=== PATIENT | female | born 1960 | race Caucasian/White ===

== ENCOUNTER → 2023-11-14 06:49 | Outpatient (REF) | payer BC, SELFPAY | LOC: MRI 3T 06:49 | PROVIDERS: ATTENDING PHYSICIAN Podiatrist Foot Surgery; FAMILY PHYSICIAN Nurse Practitioner Family | DX: G57.62 Lesion of plantar nerve, left lower limb (principal) | CPT/HCPCS: 73718 ==

== ENCOUNTER → 2023-11-19 14:49 | Outpatient (REF) | payer BC, SELFPAY | LOC: HWRAD 14:49 | PROVIDERS: ATTENDING PHYSICIAN Internal Medicine | DX: J18.9 Pneumonia, unspecified organism (principal); J98.8 Other specified respiratory disorders; J45.21 Mild intermittent asthma with (acute) exacerbation | CPT/HCPCS: 71046 ==

== ENCOUNTER → 2023-12-03 10:31 | Outpatient (REF) | payer BC, SELFPAY | LOC: RCS 10:31 | PROVIDERS: ATTENDING PHYSICIAN Internal Medicine Cardiovascular Disease; FAMILY PHYSICIAN Nurse Practitioner Family | DX: I48.0 Paroxysmal atrial fibrillation (principal) | CPT/HCPCS: 93225; 93226 ==

== ENCOUNTER → 2024-01-09 07:38 | Outpatient (REF) | payer BC, SELFPAY ==
[2024-01-18 07:06] LABS: HPV, High Risk Not Detected; HPV, High Risk Source Cervical
== END ==
LOC: CPAP 07:38
PROVIDERS: ATTENDING PHYSICIAN Obstetrics & Gynecology Gynecology
DX: Z01.419 Encounter for gynecological examination (general) (routine) without abnormal findings (principal)
CPT/HCPCS: 87624

== ENCOUNTER → 2024-01-14 15:41 | Outpatient (REF) | payer BC, SELFPAY | LOC: WDC 15:41 | PROVIDERS: ATTENDING PHYSICIAN Obstetrics & Gynecology Gynecology; FAMILY PHYSICIAN Nurse Practitioner Family | DX: Z12.31 Encounter for screening mammogram for malignant neoplasm of breast (principal); Z01.419 Encounter for gynecological examination (general) (routine) without abnormal findings | CPT/HCPCS: 77063; 77067 ==

== ENCOUNTER 2024-02-16 18:47 | Emergency (ER) | payer BC, SELFPAY ==
[2024-02-16 18:49] VITALS: BP 168/96; BMI 31.9
--- NOTE | 2024-02-16 20:13 | ED.GENMED ---
History of Present Illness
General
Chief Complaint: Skin Problem
Source: patient
Exam Limitations: none
Time Seen by Provider: 02/16/24 19:19
Nursing documentation reviewed up to this point in time: agreed with
History of Present Illness
History of Present Illness:
64-year-old female presenting to the emergency department today with concerns of right lower extremity swelling and discomfort over the past 2 weeks treated with Doxy over the past 5 days but ongoing redness and swelling to the area. Denies
systemic symptoms fevers chills nausea vomiting.
Past History
Past History
ED Past Medical History: Asthma and Hypercholesterolemia
Social History
Tobacco: Non-smoker
Alcohol: None
Drug: None
Personal:
Living: with family
Employment: Employed
Family History
Family History: CAD
Review of Systems
Review of Systems
Allergies reviewed?: Yes
All Other Systems: ROS reviewed and negative except as documented in HPI and ROS
Phy Exam
Physical Exam
Physical Exam:
GENERAL: Alert , in no apparent distress
EYE: pupils equal and reactive
NECK: Supple, no significant adenopathy.
ENT: o/p clr, mmm.
CARDIAC: Regular rate and rhythm .
LUNGS: Clear breath sounds bilaterally, no acute respiratory distress, no wheezes/rales/rhonchi
ABDOMEN: Soft, without focal tenderness, no r/g, no cvat
NEUROLOGICAL: Alert and oriented, no focal neuro deficits
SKIN: Distal right lateral lower extremity with an area of roughly 5 x 5 cm in size redness swelling fluctuance and induration. Warm and dry, skin intact.
MUSCULOSKELETAL: No edema, well perfused.
PSYCH: Normal and appropriate interaction.
Course
Orders/Labs/Results
Orders:
Orders
02/16/24 20:09
Clindamycin HCl [Cleocin] 450 mg PO NOW STA
Vital Signs
Initial and Last Documented VS:
Initial Vital Signs
Temp Pulse Resp BP Pulse Ox
98 F 89 16 168/96 99
02/16/24 18:49 02/16/24 18:49 02/16/24 18:49 02/16/24 18:49 02/16/24 18:49
Last Documented Vital Signs
Temp Pulse Resp BP Pulse Ox
98 F 89 16 168/96 99
02/16/24 18:49 02/16/24 18:49 02/16/24 18:49 02/16/24 18:49 02/16/24 18:49
Procedures
Incision/Drainage/Joint Aspiration
Right Lateral Distal Leg:
Anethesia: 1% Lidocaine with Epi
Preparation: cleaned with alcohol wipe
Type of procedure: incise and drain
Nature of site: abscess
Description of abscess: greater than 3cm
Loculations broken up: Yes
How much fluid was obtained?: small amount
Fluid description: purulent
Treatment: left open for drainage
MDM/Problems Addressed
MDM/Problems Addressed:
64-year-old female presenting to the emergency department today with concerns of ongoing redness swelling discomfort to the right distal lower extremity. Has been taking Doxy but has had ongoing redness and swelling. There is an area of induration
and fluctuance to the central area. Appears to be consistent with an abscess which would explain why the symptoms were not fully resolving with oral antibiotics. This was drained with moderate amount of purulent drainage this was left open for
continued drainage the patient was placed on clindamycin. Otherwise stable for outpatient management return precautions given.
*Critical Care Note
Total Time (30-74mins, 75-104mins- exclusive of procedures): Not Applicable
ED Attending Note
-
Portions of this chart may have been created with voice recognition software.� Occasional wrong word or��sound alike� substitutions may have occurred due to the inherent limitations of voice recognition software.
Discharge Plan
Departure
Patient Disposition: Home (Routine Discharge)
Date of Disposition: 02/16/24
Time of Disposition: 20:23
Patient with high blood pressure during this ER visit?: No
Condition: Good
Covid-19: Not Applicable
Discharge Problem:
Abscess
Instructions: Skin Abscess
Prescriptions:
New
clindamycin HCl 300 mg capsule
300 mg PO Q6H 5 Days Qty: 20 0RF
No Action
fluoxetine 10 mg Capsule
10 mg PO QPM
propafenone 150 mg tablet
150 mg PO Q8H PRN (Reason: Recurrent atrial fibrillation) Qty: 30 0RF
aspirin 81 mg capsule
81 mg PO DAILY Qty: 30 0RF
Referrals:
Melissa Smalls CRNP [Family Provider] -
Activity Restrictions/Additional Instructions:
You came to the emergency department today with concerns of an abscess. This was drained here please use warm compresses to the area and take clindamycin 4 times daily. Return to the emergency department for any worsening, new or concerning
symptoms. Please follow close with the primary care doctor this week for reassessment.
Interventions
Interventions:
*Risk Screen - Suicide Last Done: 02/16/24 18:49
*Neglect/Abuse Screening Last Done: 02/16/24 18:49
ED- Fall Risk Assessment Last Done: 02/16/24 19:55
ED-Skin Assessment Last Done: 02/16/24 19:54
Discharge Date and Time
Print Language: MACEDONIAN
[2024-02-16] MEDS: CLEOCIN 450 MG PO (20:39)
[2024-02-16 20:43] VITALS: BP 162/87
== END 2024-02-16 20:59 | disposition home or self-care (01) ==
LOC: EMR 18:47
PROVIDERS: EMERGENCY PHYSICIAN Student in an Organized Health Care Education/Training Program; FAMILY PHYSICIAN Nurse Practitioner Family
DX: L02.415 Cutaneous abscess of right lower limb (principal)
CPT/HCPCS: 99283; 10060; 87070; 87205

== ENCOUNTER → 2024-02-20 13:25 | Outpatient (REF) | payer BC, SELFPAY | LOC: RAD 13:25 | PROVIDERS: ATTENDING PHYSICIAN Family Medicine | DX: L02.415 Cutaneous abscess of right lower limb (principal) | CPT/HCPCS: 76882 ==

== ENCOUNTER → 2024-03-27 07:42 | Outpatient (REF) | payer BC, SELFPAY ==
[2024-03-27 08:45] LABS: % Eosinophils 3.2 % (0-6); % Immature Granulocytes 0.3 % (0-0.5); % Lymphocytes 23.9 % (20.5-51.1); % Monocytes 8.1 % (1.7-9.3); % Neutrophils 63.5 % (42.2-75.2); Absolute Basophils 0.1 10^3/uL (0-0.2); Absolute Eosinophils 0.2 10^3/uL (0-0.7); Absolute Lymphocytes 1.7 10^3/uL (1.2-3.4); Absolute Monocytes 0.6 10^3/uL (0.1-0.6); Absolute Neutrophils 4.6 10^3/uL (1.4-6.5); Hematocrit 40.8 % (37.0-47.0); Hemoglobin 13.7 g/dL (12.0-16.0); Mean Corp Hgb Conc. 33.6 g/dL (33.0-37.0); Mean Corpuscular Hgb 30.3 pg (27.0-31.0); Mean Corpuscular Volume 90.3 fL (81.0-99.0); Mean Platelet Volume 11.5 fL (7.4-10.4); Nucleated Red Blood Cells % 0 %; Platelet Count 315 10^3/uL (130-400); Red Blood Cell Count 4.52 10^6/uL (4.20-5.40); Red Cell Dist. Width 13.6 % (11.5-14.5); White Blood Cell Count 7.2 10^3/uL (4.8-10.8)
[2024-03-27 09:19] LABS: ALT (SGPT) 38 U/L (0-35); AST (SGOT) 31 U/L (14-36); Albumin 4.8 g/dl (3.5-5.0); Alkaline Phosphatase 79 U/L (38-126); Blood Urea Nitrogen 19 mg/dl (7-17); Calcium 10.3 mg/dl (8.4-10.2); Carbon Dioxide 28 mmol/L (22-30); Chloride 101 mmol/L (98-107); Glucose 94 mg/dl (70-99); HDL Cholesterol 58 mg/dl; LDL Cholesterol, Calculated 142 mg/dl; Sodium 142 mmol/L (135-145); Total Bilirubin 0.8 mg/dl (0.2-1.3); Total Cholesterol 232 mg/dl (50-199); Total Protein 7.5 g/dl (6.3-8.2); Triglyceride 162 mg/dl (10-149); Very Low Density Lipoprotein 32 mg/dl (0-30); eGFR > 60.00
[2024-03-27 09:50] LABS: TSH Reflex To Free T4 2.22 uIU/ml (0.47-4.68)
== END ==
LOC: REG 07:42
PROVIDERS: ATTENDING PHYSICIAN Internal Medicine; FAMILY PHYSICIAN Nurse Practitioner Family
DX: Z00.00 Encounter for general adult medical examination without abnormal findings (principal); E78.5 Hyperlipidemia, unspecified
CPT/HCPCS: 36415; 80053; 80061; 84443; 85025

== ENCOUNTER → 2024-04-20 15:03 | Outpatient (REF) | payer BC, SELFPAY | LOC: RAD 15:03 | PROVIDERS: ATTENDING PHYSICIAN Obstetrics & Gynecology Gynecology; FAMILY PHYSICIAN Nurse Practitioner Family | DX: Z78.0 Asymptomatic menopausal state (principal) | CPT/HCPCS: 77080 ==

== ENCOUNTER 2024-09-02 06:38 | Outpatient (RCR) | payer BC, SELFPAY | END 2024-09-02 23:59 | disposition home or self-care (01) | LOC: RPT 06:38 | PROVIDERS: ATTENDING PHYSICIAN Physician Assistant Surgical; FAMILY PHYSICIAN Nurse Practitioner Family | DX: S76.311D Strain of muscle, fascia and tendon of the posterior muscle group at thigh level, right thigh, subsequent encounter (principal); Z73.6 Limitation of activities due to disability; M62.81 Muscle weakness (generalized); R26.2 Difficulty in walking, not elsewhere classified | CPT/HCPCS: 97010; 97110; 97112; 97140; 97162; 97530 ==

== ENCOUNTER 2024-09-29 06:32 | Outpatient (RCR) | payer BC, SELFPAY | END 2024-09-29 09:00 | disposition home or self-care (01) | LOC: RPT 06:32 | PROVIDERS: ATTENDING PHYSICIAN Physician Assistant Surgical; FAMILY PHYSICIAN Nurse Practitioner Family | DX: S76.311D Strain of muscle, fascia and tendon of the posterior muscle group at thigh level, right thigh, subsequent encounter (principal); Z73.6 Limitation of activities due to disability; M62.81 Muscle weakness (generalized); R26.2 Difficulty in walking, not elsewhere classified; R26.89 Other abnormalities of gait and mobility | CPT/HCPCS: 97010; 97110; 97112; 97140; 97530 ==

== ENCOUNTER → 2024-11-16 07:20 | Outpatient (REF) | payer BC, SELFPAY ==
[2024-11-16 07:57] LABS: % Eosinophils 3.7 % (0-6); % Immature Granulocytes 0.3 % (0-0.5); % Lymphocytes 20.5 % (20.5-51.1); % Monocytes 8.5 % (1.7-9.3); Absolute Basophils 0.1 10^3/uL (0-0.2); Absolute Eosinophils 0.3 10^3/uL (0-0.7); Absolute Lymphocytes 1.5 10^3/uL (1.2-3.4); Absolute Monocytes 0.6 10^3/uL (0.1-0.6); Absolute Neutrophils 4.8 10^3/uL (1.4-6.5); Hematocrit 39.5 % (37.0-47.0); Hemoglobin 13.4 g/dL (12.0-16.0); Mean Corp Hgb Conc. 33.9 g/dL (33.0-37.0); Mean Corpuscular Hgb 30.5 pg (27.0-31.0); Mean Platelet Volume 11.1 fL (7.4-10.4); Nucleated Red Blood Cells % 0 %; Platelet Count 285 10^3/uL (130-400); Red Blood Cell Count 4.39 10^6/uL (4.20-5.40); Red Cell Dist. Width 13.4 % (11.5-14.5); White Blood Cell Count 7.3 10^3/uL (4.8-10.8)
[2024-11-16 10:38] LABS: ALT (SGPT) 42 U/L (0-35); AST (SGOT) 28 U/L (14-36); Alkaline Phosphatase 75 U/L (38-126); Blood Urea Nitrogen 20 mg/dl (7-17); Calcium 9.9 mg/dl (8.4-10.2); Carbon Dioxide 23 mmol/L (22-30); Chloride 105 mmol/L (98-107); Glucose 98 mg/dl (70-99); HDL Cholesterol 56 mg/dl; LDL Cholesterol, Calculated 150 mg/dl; Potassium 4.8 mmol/L (3.5-5.1); Sodium 139 mmol/L (135-145); Total Bilirubin 0.7 mg/dl (0.2-1.3); Total Cholesterol 237 mg/dl (50-199); Total Protein 7.7 g/dl (6.3-8.2); Triglyceride 155 mg/dl (10-149); Very Low Density Lipoprotein 31 mg/dl (0-30); eGFR > 60.00
[2024-11-16 10:49] LABS: TSH Reflex To Free T4 2.29 uIU/ml (0.47-4.68)
[2024-11-16 11:18] LABS: Vitamin D, 25-OH*** 22.7 ng/mL (30-80)
[2024-11-16 11:50] LABS: Vitamin B12 295 pg/ml (239-931)
== END ==
LOC: REG 07:20
PROVIDERS: ATTENDING PHYSICIAN Nurse Practitioner Family
DX: E53.8 Deficiency of other specified B group vitamins (principal); E55.9 Vitamin D deficiency, unspecified; E78.00 Pure hypercholesterolemia, unspecified
CPT/HCPCS: 36415; 80053; 80061; 82306; 82607; 84443; 85025

== ENCOUNTER → 2024-11-26 09:54 | Outpatient (REF) | payer BC, SELFPAY | LOC: CLAB 09:54 | PROVIDERS: Pathology Anatomic Pathology & Clinical Pathology; ATTENDING PHYSICIAN Physician Assistant Medical | DX: D48.5 Neoplasm of uncertain behavior of skin (principal) | CPT/HCPCS: 88305 ==

== ENCOUNTER → 2025-02-02 15:38 | Outpatient (REF) | payer BC, SELFPAY | LOC: WDC 15:38 | PROVIDERS: ATTENDING PHYSICIAN Obstetrics & Gynecology Gynecology; FAMILY PHYSICIAN Internal Medicine | DX: Z12.31 Encounter for screening mammogram for malignant neoplasm of breast (principal) | CPT/HCPCS: 77063; 77067 ==

== ENCOUNTER 2025-04-09 16:39 | Emergency (ER) | payer BC, SELFPAY ==
[2025-04-09 16:40] VITALS: BP 193/106
--- NOTE | 2025-04-09 18:09 | ED.GENMED ---
History of Present Illness
General
Chief Complaint: Headache
Source: patient
Exam Limitations: none
Time Seen by Provider: 04/09/25 17:51
History of Present Illness
History of Present Illness:
65yoF with a history of cervical stenosis, atrial fibrillation, and sleep apnea presenting for evaluation of a headache. Symptoms began about 3 days ago. Her pain was initially mild but woke her up from sleep 3 days ago and was severe. Pain is
positional and is worse after standing. Her pain improves a few minutes after sitting down. Her pain is located at the bilateral parietal and occipital regions and is described as a throbbing pressure. She is also having some muscle spasms in her
neck. She denies any prior history of headaches. She was seen by her PCP today and was sent to the ED for a CT scan. She denies any fevers, neck stiffness, photophobia, vomiting, head trauma. Of note, patient was seen by her PCP last week for a
rash and was told that it was likely bug bites but was started on a prednisone taper as well as doxycycline for possible Lyme disease.
Past History
Past History
ED Past Medical History: Asthma and Hypercholesterolemia
Social History
Tobacco: Non-smoker
Alcohol: None
Drug: None
Personal:
Living: with family
Employment: Employed
Family History
Family History: CAD
Phy Exam
General Physical Exam
General Presentation: well appearing and no apparent distress
General Skin: warm and dry
General Habitus: normal
General Mental: alert
ENT Exam
ENT Exam: normocephalic
Additional ENT: No meningismus
Eye Exam
Eye Exam: PERRL and conjunctiva normal
Pulmonary Exam
Pulmonary Exam: no respiratory distress
Neurological Exam
Neurological Exam: alert, speech normal and other (No focal deficits)
[place] Coma Scale
Eye Opening: Spontaneous
Verbal Response: Oriented
Motor Response: Obeys Commands
GCS Total Score: 15
Skin Exam
Skin Exam: normal color and warm/dry
Psychiatric Exam
Psychiatric Exam: normal mood/affect
Course
Orders/Labs/Results
Orders:
Orders
04/09/25 18:07
CT Head & Neck Angio W/wo IV Urgent
Comment:
Reason For Exam: new onset headache, neck pain
0.9% Sodium Chloride 1000 ml [Nss] 1,000 ml IV BOLUS
04/09/25 18:11
Complete Blood Count/With Diff Urgent
Comprehensive Metabolic Panel Urgent
Lyme Progressive Urgent
04/09/25 19:08
Dexamethasone Sod Phosphate [Decadron] 10 mg IV NOW STA
Diphenhydramine [Benadryl] 25 mg IV NOW STA
Magnesium Sulfate 2 Gram/50 ml [Magnesium Sulfate] 2 gram in 50 ml IV NOW
Metoclopramide [Reglan] 10 mg IV NOW STA
Abnormal Lab Results
04/09/25
18:11
WBC 12.5 H 10^3/uL
(4.8-10.8)
MPV 11.0 H fL
(7.4-10.4)
Abs Immat Gran (auto) 0.1 H 10^3/uL
(0-0.05)
Absolute Neuts (auto) 7.3 H 10^3/uL
(1.4-6.5)
Absolute Lymphs (auto) 3.6 H 10^3/uL
(1.2-3.4)
Absolute Monos (auto) 0.8 H 10^3/uL
(0.1-0.6)
Immature Gran % 0.7 H %
(0-0.5)
BUN 18 H mg/dl
(7-17)
ALT 39 H U/L
(0-35)
04/09/25 18:11
04/09/25 18:11
Vital Signs
Initial and Last Documented VS:
Initial Vital Signs
Temp Pulse Resp BP Pulse Ox
97.4 F 86 16 193/106 98
04/09/25 16:40 04/09/25 16:40 04/09/25 16:40 04/09/25 16:40 04/09/25 16:40
Last Documented Vital Signs
Temp Pulse Resp BP Pulse Ox
97.4 F 89 18 154/78 100
04/09/25 16:40 04/09/25 23:18 04/09/25 23:18 04/09/25 23:18 04/09/25 23:18
MDM/Problems Addressed
Differential Diagnosis Includes:
65yoF here with new onset positional headaches x 3 days. Sent in by PCP for CT scan. BP 193/106 on arrival. She is well appearing in no distress. No focal neuro deficits or nuchal rigidity on exam. Differential diagnosis includes but is not limited
to: tension headache, intracranial hemorrhage, brain mass, less likely migraine
Initial ED plan: Check CBC, CMP, Lyme testing, and CTA head/neck. IV migraine cocktail and reassess.
*Pulse Oximetry
SaO2: 98
Oxygen Mode of Delivery: Room air
Patient hypoxic: no (98%)
*Critical Care Note
Total Time (30-74mins, 75-104mins- exclusive of procedures): Not Applicable
Update Note
Update Note:
Imaging shows '7.6 mm SACCULAR ANEURYSM protruding from the anterior wall of the mid cervical segment of the left ICA' as well as severe cervical degenerative disc disease. Discussed this with corporate learning consultant vascular surgeon, Dr. Devlin, who reviewed
imaging. Vascular does not feel any acute intervention is needed and states this is likely not causing her acute headache but recommends outpatient f/u with neurosurgery. Patient feeling much better on reassessment and headache is down to a 1/10 in
severity. Findings discussed with patient and and copy of radiology report provided. Will trial Flexeril for symptoms. Advised close f/u with PCP and neurosurgery and strict ED return precautions reviewed. She was discharged in stable
condition.
ED Attending Note
-
Portions of this chart may have been created with voice recognition software.� Occasional wrong word or��sound alike� substitutions may have occurred due to the inherent limitations of voice recognition software.
Discharge Plan
Departure
Patient Disposition: Home (Routine Discharge)
Date of Disposition: 04/09/25
Time of Disposition: 22:25
Patient with high blood pressure during this ER visit?: Yes
Discharge Problem:
Acute headache, Aneurysm of left internal carotid artery
Instructions: Headache, Adult (DC)
Prescriptions:
New
cyclobenzaprine 10 mg tablet
10 mg PO Q8H PRN (Reason: muscle spasms) Qty: 20 0RF
No Action
fluoxetine 10 mg Capsule
10 mg PO QPM
propafenone 150 mg tablet
150 mg PO Q8H PRN (Reason: Recurrent atrial fibrillation) Qty: 30 0RF
aspirin 81 mg capsule
81 mg PO DAILY Qty: 30 0RF
clindamycin HCl 300 mg capsule
300 mg PO Q6H 5 Days Qty: 20 0RF
Referrals:
Lluvia Call MD [Family Provider, Internal Medicine]
Activity Restrictions/Additional Instructions:
Take Flexeril as needed for muscle spasms.
Please call on Saturday to schedule follow-up appointments with neurosurgery and your family doctor. Return to the ER immediately with any new or worsening symptoms.
Dr. Ren Mills
[facility]
[address], [facility] [place] [address]
Office: [phone]
Interventions
Interventions:
*Risk Screen - Suicide Last Done: 04/09/25 19:50
*General Assessment Last Done: 04/09/25 19:50
*Neglect/Abuse Screening Last Done: 04/09/25 19:50
*ED- Fall Risk Assessment Last Done: 04/09/25 19:51
*Nursing Disposition Last Done: 04/09/25 23:19
ED- Neurological Assessment Last Done: 04/09/25 19:49
Discharge Date and Time
Discharge Date/Time: 04/09/25 23:19
Print Language: GREEK
[2025-04-09] MEDS: NSS 1000 IV (18:21)
[2025-04-09 19:09] VITALS: BP 154/90
[2025-04-09 19:10] LABS: Hematocrit 40.0 % (37.0-47.0); Hemoglobin 13.5 g/dL (12.0-16.0); Mean Corp Hgb Conc. 33.8 g/dL (33.0-37.0); Mean Corpuscular Volume 89.3 fL (81.0-99.0); Nucleated Red Blood Cells % 0 %; Platelet Count 309 10^3/uL (130-400); Red Cell Dist. Width 13.6 % (11.5-14.5)
[2025-04-09] MEDS: MAGNESIUM SULFATE 50 IV (19:17)
[2025-04-09] MEDS: REGLAN 10 MG IV (19:18)
[2025-04-09] MEDS: BENADRYL 25 MG IV (19:19)
[2025-04-09] MEDS: DECADRON 10 MG IV (19:20)
[2025-04-09 19:35] LABS: ALT (SGPT) 39 U/L (0-35); AST (SGOT) 22 U/L (14-36); Albumin 4.7 g/dl (3.5-5.0); Alkaline Phosphatase 82 U/L (38-126); Blood Urea Nitrogen 18 mg/dl (7-17); Calcium 10.0 mg/dl (8.4-10.2); Carbon Dioxide 26 mmol/L (22-30); Chloride 102 mmol/L (98-107); Glucose 91 mg/dl (70-99); Potassium 4.5 mmol/L (3.5-5.1); Sodium 135 mmol/L (135-145); Total Protein 8.0 g/dl (6.3-8.2); eGFR > 60.00
[2025-04-09 23:18] VITALS: BP 154/78
[2025-04-12 15:57] LABS: Lyme Antibody Screen, EIA Negative (Negative)
== END 2025-04-09 23:19 | disposition home or self-care (01) ==
LOC: EMR 16:39
PROVIDERS: Physician Assistant; EMERGENCY PHYSICIAN Emergency Medicine; FAMILY PHYSICIAN Internal Medicine
DX: I67.1 Cerebral aneurysm, nonruptured (principal); R51.9 Headache, unspecified; I65.22 Occlusion and stenosis of left carotid artery; G47.30 Sleep apnea, unspecified; M48.02 Spinal stenosis, cervical region
CPT/HCPCS: 99285; 96365; 96375 ×3; 70496; 70498; 80053; 85025; 86618; Q9967

== ENCOUNTER → 2025-05-02 08:03 | Outpatient (REF) | payer BC, SELFPAY | LOC: PAVMRI 08:03 | PROVIDERS: ATTENDING PHYSICIAN Nurse Practitioner Adult Health | DX: M54.12 Radiculopathy, cervical region (principal) | CPT/HCPCS: 72141 ==

== ENCOUNTER → 2025-07-05 09:01 | Outpatient (REF) | payer BC, SELFPAY | LOC: RAD 09:01 | PROVIDERS: FAMILY PHYSICIAN Nurse Practitioner Adult Health | DX: I72.9 Aneurysm of unspecified site (principal) | CPT/HCPCS: 70496; 70498; Q9967 ==